=== PATIENT | male | born 1955 | race Caucasian/White ===

== ENCOUNTER 2020-09-10 11:23 | Emergency (ER) | payer SELFPAY ==
[2020-09-10 11:53] VITALS: BP 133/70; PULSE 82; RESP 20; TEMP 39.3; O2SAT 91; BMI 22.4
--- NOTE | 2020-09-10 12:52 | XR_ITS ---
WS: [id number] XR chest 1V portable [id number] REASON FOR EXAM: Cough FINDINGS: The heart and the mediastinum are within normal limits. Hazy groundglass density and nodular infiltrative changes are seen in the left lower lung and likely within the right lower lung as well. No pleural effusions identified. The bony thorax demonstrates old healed rib fractures and degenerative spondylosis in the lower thora cic spine. No other significant abnormality. XR/XR chest 1V portable [id number] IMPRESSION: Lung infiltrates which are suggestive of Covid pneumonitis.
--- NOTE | 2020-09-10 12:52 | ECG_ITS ---
[facility] Test Date: 2020-09-10 Pat Name: Deepak Valle Department: Room: Gender: Male Audit Specialist: : 1955 Requested By: Fei Aquino Order Number: [id number] Jorge MD: Shanon Kendrick M.D. Measurements Intervals [place] Rate: 80 P: 73 NV: 172 QRS: 5 QRSD: 100 T: 63 QT: 356 QTc: 411 Interpretive Statements SINUS RHYTHM WITH OCCASIONAL SUPRAVENTRICULAR PREMATURE COMPLEXES INCOMPLETE RIGHT BUNDLE BRANCH BLOCK [90+ ms QRS DURATION, TERMINAL R IN V1/V2, 40+ ms S IN I/aVL/V4/V5/V6] VOLTAGE CRITERIA FOR LVH [MEETS CRITERIA IN ONE OF: R(aVL), S(V1), R(V5), R(V5/V6)+S(V1)] No previous ECG available for comparison Electronically Signed On 09-10-2020 22:08:31 CDT by Shanon Kendrick M.D. [id number]
[2020-09-10 13:13] VITALS: BP 136/77; PULSE 79; RESP 28; TEMP 39.3
[2020-09-10 13:38] LABS: Basophils % 0.1 %; Hematocrit 34.9 % (42.0-52.0); Hemoglobin 12.3 g/dL (11.7-16.6); Lymphocytes # 0.7 10^3/uL (0.8-4.8); Lymphocytes % 10.3 %; Mean Corpuscular HGB Conc 35.2 g/dL (30.0-36.0); Mean Corpuscular Hemoglobin 31.1 pg (28.0-34.0); Mean Corpuscular Volume 88.4 fL (80-94); Mean Platelet Volume 11.2 fL (7.4-10.4); Monocytes # 0.4 10^3/uL (0.2-0.9); Neutrophils # 5.62 10^3/uL (1.8-7.7); Nucleated Red Blood Cells % 0 %; Platelet Count 255 10^3/cmm (130-400); Red Blood Count 3.95 10^6/uL (4.1-5.3); Red Cell Distribution Width 12.7 % (12.1-15.1); White Blood Count 6.8 10^3/uL (4.0-10.0)
--- NOTE | 2020-09-10 13:40 | ED_ITS ---
HPI - SOB/Dyspnea General: Chief Complaint: Shortness of Breath/Dyspnea Stated Complaint: Weakness, SOB, COVID + Time Seen by Provider: 09/10/20 12:53 History of Present Illness: HPI Narrative: This patient is a 65-year-old male who presents to the emergency department complaint of fatigue. Patient states that he has been having colds for the past 5 days and was diagnosed outpatient. Patient states he is still running fever just does not have any energy. O2 sat sat is 91 to 93% on room air. Will do medical evaluation treat as needed MD elicited complaint: cough Onset (ago): day(s) Context: recent illness Timing: constant Severity: mild Exacerbating factors: nothing Relieving factors: nothing Associated symptoms: Deny abdominal pain, chest pain, extremity pain, fever(s), lightheadedness, nausea, palpitations or vomiting Review of Systems General: Reports: 10 or more systems reviewed and unremarkable except in HPI and below Const: Reports: fatigue; Denies: fever(s), chills or body aches Eyes: Denies: change in vision or blurry vision ENMT: Denies: throat pain, hoarseness or mouth pain Card: Denies: chest pain, palpitations, irregular heart rhythm, edema, swelling of feet/ankles or lightheadedness Resp: Reports: dyspnea; Denies: productive cough, non-productive cough, wheezing or pain on inspiration GI: Denies: abdominal pain, nausea or vomiting : Denies: flank pain, dysuria, urinary frequency, urinary urgency or urinary hesitancy Musc: Denies: neck pain, back pain, extremity pain, extremity swelling, joint pain, joint swelling, joint redness, joint warmth or limited range of motion Skin/Breast: Denies: rash, pruritus, erythema or skin tenderness Neuro: Denies: headache(s), numbness in extremities or weakness in extremities Psych: Denies: anxiety or depression Physical Exam Const: COMMON NORMALS: no acute distress, average body habitus, patient oriented x3, no limitations, healthy appearing, alert and well nourished HENMT: COMMON NORMALS: normocephalic, atraumatic, hearing grossly normal bilaterally, external ears normal, EAC's normal, TM's normal bilaterally, Normal external nose present, Normal nasal mucous membranes and turbinates present, moist oral mucous membranes, oropharynx normal, dentition normal and gingiva normal HEAD & SCALP: normocephalic and atraumatic NOSE: Normal external nose present and Normal nasal mucous membranes and turbinates present EXTERNAL EAR: Yes external ears normal EXTERNAL AUDITORY CANAL: EAC's normal TYMPANIC MEMBRANE: TM's normal bilaterally Neck/C-Spine: COMMON NORMALS: full ROM, no lymphadenopathy, supple, no meningeal signs, no JVD, Thyroid normal and No carotid bruits THYROID: Thyroid normal Chest: COMMONS NORMALS: normal inspection of the chest, normal palpation of entire chest wall, normal inspection of the breasts and normal palpation of the breasts Breast/axilla inspection: Yes normal inspection of the breasts BREAST/AXILLA PALPATION: Yes normal palpation of the breasts Resp: COMMON NORMALS: normal respiratory effort, No retractions, No use of accessory muscles, clear to auscultation bilaterally and percussion normal AUSCULTATION: clear to auscultation bilaterally PERCUSSION: percussion normal Cardio: COMMON NORMALS: no JVD, regular rate, regular rhythm, S1 normal heart sound present, S2 normal heart sound present, No gallops present (Cardio), No clicks present (Cardio), No murmurs present (Cardio), No rub (Cardio) and Peripheral pulses 2+ throughout RATE: regular rate RHYTHM: regular rhythm HEART SOUNDS: S1 normal heart sound present and S2 normal heart sound present PERIPHERAL PULSES: Peripheral pulses 2+ throughout GI: COMMON NORMALS: Normal to inspection, nondistended, normoactive bowel sounds present, Soft to palpation, non-tender, No hepatosplenomegaly present, no masses and no bruits PALPATION: Yes Soft to palpation and Yes No hepatosplenomegaly present : COMMON NORMALS: Yes no CVA tenderness BLADDER/KIDNEY EXAM: Yes no CVA tenderness Back/Pelvis: COMMON NORMALS: no CVA tenderness, thoracic and lumbar spine normal to inspection, no thoracic nor lumbar tenderness, thoraco-lumbar ROM normal and straight leg raise negative bilaterally Extremity: COMMON NORMALS: normal to inspection, full ROM, capillary refill normal, no joint enlargement, no clubbing, cyanosis or edema, no calf tenderness and no pedal edema Neuro: COMMON NORMALS: patient oriented x3 SENSORIUM/ORIENTATION: Yes alert MENINGEAL SIGNS: Yes no meningeal signs Course Reevaluation(s): Reevaluation #1: Patient is stable states he feels much improved after IV fluid bolus. Patient does have Covid pneumonia pneumonitis. Patient be discharged home Viral syndrome Cool-mist humidifier as needed. Encourage p.o. fluids. Continue Tylenol Motrin as needed for fever for pain. Continue self quarantine. Follow-up with PCP in 7 to 10 days. Return to the emergency department symptoms fail to improve or worsen. Time: 15:47 Vital Signs: Vital signs: Vital Signs Temperature 102.8 F H 09/10/20 13:13 Pulse Rate 81 09/10/20 14:49 Respiratory Rate 41 H 09/10/20 14:49 Blood Pressure 135/74 09/10/20 14:49 Pulse Oximetry 95 09/10/20 14:49 MDM - SOB/Dyspnea MDM Narrative: Medical decision making narrative: Cool-mist humidifier as needed. Encourage p.o. fluids. Continue Tylenol Motrin as needed for fever for pain. Continue self quarantine. Follow-up with PCP in 7 to 10 days. Return to the emergency department symptoms fail to improve or worsen. Lab Data: Labs: Lab Results 09/10/20 09/10/20 09/10/20 Range/Units 13:25 13:25 13:25 WBC 6.8 (4.0-10.0) 10^3/ uL RBC 3.95 L (4.1-5.3) 10^6/u L Hgb 12.3 (11.7-16.6) g/dL Hct 34.9 L (42.0-52.0) % MCV 88.4 (80-94) fL MCH 31.1 (28.0-34.0) pg MCHC 35.2 (30.0-36.0) g/dL RDW 12.7 (12.1-15.1) % Plt Count 255 (130-400) 10^3/c mm MPV 11.2 H (7.4-10.4) fL Neut % (Auto) 83.0 % Lymph % (Auto) 10.3 % [place] % (Auto) 6.0 % Eos % (Auto) 0.0 % Baso % (Auto) 0.1 % Neut # (Auto) 5.62 (1.8-7.7) 10^3/u L Lymph # (Auto) 0.7 L (0.8-4.8) 10^3/u L [place] # (Auto) 0.4 (0.2-0.9) 10^3/u L Eos # (Auto) 0.0 (0.0-0.8) 10^3/u L Baso # (Auto) 0.0 (0.0-0.1) 10^3/u L Nucleated RBC % (a uto) 0 % Nucleated RBCs # 0.0 /100WBC PT 14.10 (12.1-14.9) SECO NDS INR 1.06 (0.8-1.2) APTT 40.0 H (23.9-36.7) SECO NDS D-Dimer 1.24 H (0-0.59) ug/mIFE U Specimen Type Sample Site ABG pH (7.35-7.45) ABG pCO2 (35-45) mmHg ABG pO2 (80.0-100.0) mmH g ABG HCO3 (22-26) mmol/L ABG O2 Saturation ABG Base Excess (-2.0-2.0) mmol/ L Gaurav Test A-a O2 Gradient (5-10) mmHg Hematocrit (42-52) % Hgb O2 Saturation (95-100) % Carboxyhemoglobin (0.4-20.1) %THgb Methemoglobin (0.4-1.5) % Total Hemoglobin (14-18) g/dL Ionized Calcium (1.1-1.4) mmol/L O2 Delivery Device Otolaryngology Physician ID Sodium 134 L (136-145) mmol/L Potassium 3.8 (3.5-5.1) mmol/L Chloride 93 L (98-107) mmol/L Carbon Dioxide 26 (22-29) mmol/L Anion Gap 18.8 (5-19) BUN 46 H (8-23) mg/dL Creatinine 1.4 H (0.7-1.2) mg/dL GFR Calculation 51.2 L (90-130) mL/min Glucose 106 (65-115) mg/dL Calculated Osmolal ity 290 (285-295) mOsm/k g Calcium 8.1 L (8.5-10.5) mg/dL Total Bilirubin 0.8 (0.15-1.2) mg/dL AST 76 H (0-40) U/L ALT 44 H (0-41) U/L Alkaline Phosphata se 88 (40-130) IU/L NT-Pro-B Natriuret Pep 113 (0-125) pg/mL Total Protein 6.2 L (6.6-8.7) g/dL Albumin 3.7 (3.5-5.2) g/dL Globulin 2.5 (1.3-4.6) g/dL Urine Color (Yellow) Urine Appearance (CLEAR) Urine pH (5-7) Ur Specific Gravit y (1.005-1.030) Urine Protein (Negative) Urine Glucose (UA) (Normal) Urine Ketones (Negative) Urine Blood (Negative) Urine Nitrate (Negative) Urine Bilirubin (Negative) Urine Urobilinogen (Negative) mg/dL Ur Leukocyte Yamila ase (Negative) Urine RBC (0-2) /hpf Urine WBC (0-5) /hpf Ur Squamous Epith Cells (0-5) /hpf Amorphous Sediment /hpf Urine Bacteria (NONE) /hpf Coarse Granular Ca sts /lpf Group A Strep Rapi d (Negative) 09/10/20 09/10/20 09/10/20 Range/Units 13:25 14:00 14:10 WBC (4.0-10.0) 10^3/ uL RBC (4.1-5.3) 10^6/u L Hgb (11.7-16.6) g/dL Hct (42.0-52.0) % MCV (80-94) fL MCH (28.0-34.0) pg MCHC (30.0-36.0) g/dL RDW (12.1-15.1) % Plt Count (130-400) 10^3/c mm MPV (7.4-10.4) fL Neut % (Auto) % Lymph % (Auto) % [place] % (Auto) % Eos % (Auto) % Baso % (Auto) % Neut # (Auto) (1.8-7.7) 10^3/u L Lymph # (Auto) (0.8-4.8) 10^3/u L [place] # (Auto) (0.2-0.9) 10^3/u L Eos # (Auto) (0.0-0.8) 10^3/u L Baso # (Auto) (0.0-0.1) 10^3/u L Nucleated RBC % (a uto) % Nucleated RBCs # /100WBC PT (12.1-14.9) SECO NDS INR (0.8-1.2) APTT (23.9-36.7) SECO NDS D-Dimer (0-0.59) ug/mIFE U Specimen Type Arterial Sample Site Brachial, left ABG pH 7.51 H (7.35-7.45) ABG pCO2 31.9 L (35-45) mmHg ABG pO2 61.8 L (80.0-100.0) mmH g ABG HCO3 25.2 (22-26) mmol/L ABG O2 Saturation 91.8 ABG Base Excess 2.7 H (-2.0-2.0) mmol/ L Gaurav Test N/a A-a O2 Gradient 6.2 (5-10) mmHg Hematocrit 41.3 L (42-52) % Hgb O2 Saturation 90.2 L (95-100) % Carboxyhemoglobin 0.8 (0.4-20.1) %THgb Methemoglobin 0.9 (0.4-1.5) % Total Hemoglobin 13.5 L (14-18) g/dL Ionized Calcium 1.1 (1.1-1.4) mmol/L O2 Delivery Device Room air Otolaryngology Physician ID Gd Sodium 136.0 (136-145) mmol/L Potassium 3.2 L (3.5-5.1) mmol/L Chloride (98-107) mmol/L Carbon Dioxide (22-29) mmol/L Anion Gap (5-19) BUN (8-23) mg/dL Creatinine (0.7-1.2) mg/dL GFR Calculation (90-130) mL/min Glucose 105.0 (65-115) mg/dL Calculated Osmolal ity (285-295) mOsm/k g Calcium (8.5-10.5) mg/dL Total Bilirubin (0.15-1.2) mg/dL AST (0-40) U/L ALT (0-41) U/L Alkaline Phosphata se (40-130) IU/L NT-Pro-B Natriuret Pep (0-125) pg/mL Total Protein (6.6-8.7) g/dL Albumin (3.5-5.2) g/dL Globulin (1.3-4.6) g/dL Urine Color Yellow (Yellow) Urine Appearance Hazy A (CLEAR) Urine pH 5 (5-7) Ur Specific Gravit y 1.010 (1.005-1.030) Urine Protein 1+ H (Negative) Urine Glucose (UA) Norm (Normal) Urine Ketones Negative (Negative) Urine Blood 2+ H (Negative) Urine Nitrate Negative (Negative) Urine Bilirubin Neg (Negative) Urine Urobilinogen Norm (Negative) mg/dL Ur Leukocyte Yamila ase Negative (Negative) Urine RBC 0-4 H (0-2) /hpf Urine WBC 0-4 H (0-5) /hpf Ur Squamous Epith Cells None (0-5) /hpf Amorphous Sediment 2+ /hpf Urine Bacteria 1+ H (NONE) /hpf Coarse Granular Ca sts 15-25 H /lpf Group A Strep Rapi d Negative (Negative) Imaging Data^: CXR: Attestation: I personally reviewed and interpreted this imaging study as follows: Radiologist's impression: IMPRESSION: Lung infiltrates which are suggestive of Covid pneumonitis. CT Chest: Attestation: I personally reviewed and interpreted this imaging study as follows: Radiologist's impression: IMPRESSION: Extensive infiltrative changes in both lungs involving a significant amount of the lung tissue of the left lung compatible with Covid pneumonitis. EKG Data^: EKG 1: Attestation: I personally reviewed and interpreted this EKG as follows: EKG Interpretation Date: 09/10/20 EKG interpretation time: 13:44 Prior EKG tracings: not available for review Interpretation: Sinus rhythm with occasional PVC. Heart rate 80 incomplete right bundle branch block. Nonspecific EKG changes Discharge Plan Discharge Patient Disposition: Home Clinical Impression: COVID-19, Systemic viral illness Condition: Stable Prescriptions: New methylprednisolone [Medrol (Mickey)] 4 mg tablets,dose pack See Rx Instructions .ROUTE .COMPLEX Qty: 21 RF: 0 albuterol sulfate 90 mcg/actuation HFA aerosol inhaler 2 puff inhalation Q4H PRN (Reason: shortness of breath or wheezing) Qty: 8.5 RF: 0 No Action Tylenol Extra Strength 500 mg Tablet 500 mg PO PRN RF: 0 Advil 200 mg Tablet 400 mg PO PRN RF: 0 Vitamin C 1 tab PO DAILY RF: 0 Discharge Orders: Discharge ED (Routine); Ordered 09/10/20 Ordered By: Fei Aquino Referrals: MIGUEL STORM, [Primary Care Provider] - Discharge Diet: Advance as tolerated Discharge Activity: Resume usual activity and Increase activity as tolerated Patient Instructions: Opioid Safety Activity Restrictions/Additional Instructions: Cool-mist humidifier as needed. Encourage p.o. fluids. Continue Tylenol Motrin as needed for fever for pain. Continue self quarantine. Follow-up with PCP in 7 to 10 days. Return to the emergency department symptoms fail to improve or worsen. Coding Level of Care Code ED Brine Tank Tender for Chg Fwd Exam Comprehensive
[2020-09-10 13:46] LABS: INR 1.06 (0.8-1.2)
[2020-09-10 13:49] LABS: D Dimer 1.24 ug/mIFEU (0-0.59)
[2020-09-10 13:51] LABS: Rapid Strep A Test Negative (Negative)
--- NOTE | 2020-09-10 13:56 | CT_ITS ---
WS: [id number] CT angio chest PE protcl [id number] REASON FOR EXAM: SOB with Elevated DDimer TECHNIQUE: Coronal and sagittal 2-D and MIP reformations. IV CONTRAST ADMINISTERED: 69 mL of Omnipaque 350. TOTAL EXAM DLP: 579.[address] scans at [facility] use at least one of these dose optimization techniques: automat ed exposure control; mA and/or kV adjustment per patient size (includes targeted exams where dose is matched to clinical indication); or iterative reconstruction. FINDINGS: No pulmonary emboli. Normal thoracic aorta. Minor bilateral hilar adenopathy which appears somewhat more prominent than on previous CT scan of e chest 12/14/2009. Large areas of groundglass density with small ill-defined areas of consolidative density and multiple linear densities in the parenchyma of both the left upper and left lower lobes, the right lower lobe , and the azygos esophageal recess. This is superimposed on a lung with findings of central lobar emp hysema. No pleural effusion. Degenerative change in the thoracic spine bony thorax otherwise intact. CT/CT angio chest PE protcl [id number] IMPRESSION: Extensive infiltrative changes in both lungs involving a significant amount of the lung tissue of the left lung compatible with Covid pneumonitis.
[2020-09-10 14:01] LABS: Alanine Aminotransferase 44 U/L (0-41); Albumin Level 3.7 g/dL (3.5-5.2); Alkaline Phosphatase 88 IU/L (40-130); Anion Gap 18.8 (5-19); Aspartate Amino Transferase 76 U/L (0-40); Blood Urea Nitrogen 46 mg/dL (8-23); Calcium 8.1 mg/dL (8.5-10.5); Carbon Dioxide 26 mmol/L (22-29); Chloride 93 mmol/L (98-107); Globulin 2.5 g/dL (1.3-4.6); Glomerular Filtration Rate 51.2 mL/min (90-130); Glucose 106 mg/dL (65-115); NT Pro B Type Natriuretic Pept 113 pg/mL (0-125); Osmolality Calculated 290 mOsm/kg (285-295); Potassium 3.8 mmol/L (3.5-5.1); Sodium 134 mmol/L (136-145); Total Bilirubin 0.8 mg/dL (0.15-1.2); Total Protein 6.2 g/dL (6.6-8.7)
[2020-09-10] MEDS: sodium chloride 0.9% 1,000 ML 999 ML IV (14:10)
[2020-09-10] MEDS: acetaminophen 325 mg Tablet 650 MG PO (14:10)
[2020-09-10] MEDS: dexamethasone 10 mg/mL INJ IM (14:10)
[2020-09-10 14:24] LABS: ABG PCO2 31.9 mmHg (35-45); ABG PH Result 7.51 (7.35-7.45); Alveolar-Arterial Oxygen Gradi 6.2 mmHg (5-10); Arterial Blood Gas Hematocrit 41.3 % (42-52); Base Excess ABG 2.7 mmol/L (-2.0-2.0); Blood Gas Operator Identificat GD; Blood Gas Sample Site Brachial, left; Blood Gas Sample Type Arterial; Carboxyhemoglobin 0.8 %THgb (0.4-20.1); HCO3 ABG 25.2 mmol/L (22-26); HGB O2 Sat 90.2 % (95-100); Ionized Calcium Level - ABG 1.1 mmol/L (1.1-1.4); Methemoglobin 0.9 % (0.4-1.5); Oxygen Device ROOM AIR; Oxygen Saturation ABG 91.8; PO2 ABG 61.8 mmHg (80.0-100.0); Potassium Level - ABG 3.2 mmol/L (3.5-5.0); Total Hemoglobin 13.5 g/dL (14-18)
[2020-09-10 14:29] LABS: Add Urine Microscopic? YES; Bilirubin Urine Neg (Negative); Blood Urine 2+ (Negative); Glucose Urine UA Norm (Normal); Ketones Urine Negative (Negative); Leukocyte Esterase Urine Negative (Negative); Nitrate Urine Negative (Negative); Protein Urine 1+ (Negative); Urine Appearance Hazy (CLEAR); Urine Color Yellow (Yellow); Urobilinogen Urine Norm (Negative); pH Urine 5 (5-7)
[2020-09-10 14:30] LABS: Amorphous Sediment Urine 2+ /hpf; Bacteria Urine 1+ /hpf; RBC Urine 0-4 /hpf (0-2); WBC Urine 0-4 /hpf (0-5)
[2020-09-10 14:31] LABS: Add Urine Culture? No; Coarse Granular Casts Urine 15-25 /lpf
[2020-09-10] MEDS: iodixanol 320 mg/mL 100mL Btl IV (14:35)
[2020-09-10 14:49] VITALS: BP 135/74; PULSE 81; RESP 41; O2SAT 95
[2020-09-10 16:16] VITALS: BP 135/79; PULSE 74; RESP 33; O2SAT 94
== END 2020-09-10 14:00 | disposition home or self-care (01) ==
PROVIDERS: Emergency Provider Emergency Medicine
DX: U07.1 COVID-19 (principal); J12.82 Pneumonia due to coronavirus disease 2019
CPT/HCPCS: 36600; 71045; 71275; 80051; 80053; 81001; 82330; 82805; 83880; 85025; 85378; 85610; 85730; 87081; 87880; 93005; 96360; 96372; 99284; J1100; J7030; Q9967

== ENCOUNTER 2020-09-15 09:04 | Emergency (ER) | payer SELFPAY ==
[2020-09-15 09:12] VITALS: BP 124/72; PULSE 71; RESP 15; TEMP 37; O2SAT 98; BMI 21.7
--- NOTE | 2020-09-15 09:16 | W.ED.COVID ---
HPI - COVID General: Chief Complaint: COVID symptoms Stated Complaint: COVID +; SOB Time Seen by Provider: 09/15/20 09:09 Triage information: Has fever, cough or shortness of breath. Exposure to COVID + person last 14 days History of Present Illness: HPI Narrative: 65-year-old male comes in with increasing shortness of breath and fever myalgias initially started with diarrhea as well as now requiring oxygen at 2 to 3 L/min. MD complaint: known COVID positive Prior covid testing: yes, results known Prior testing date: 09/06/20 COVID 19 common symptoms: positive fever(s), chills, cough, non-productive cough, dyspnea, fatigue, body aches, loss of sense of smell and/or taste, throat pain and nasal congestion COVID 19 other sytmptoms: positive requiring oxygen Onset (ago): day(s) Severity: severe COVID Results: No Data to Display Review of Systems Const: Reports: fever(s), chills, body aches and fatigue ENMT: Reports: throat pain and nasal congestion Resp: Reports: dyspnea and non-productive cough Physical Exam Const: COMMON NORMALS: no acute distress GENERAL APPEARANCE: cooperative and comfortable ORIENTATION/CONSCIOUSNESS: Yes awake, Yes oriented to person, Yes oriented to place and Yes oriented to time HENMT: COMMON NORMALS: normocephalic, atraumatic and hearing grossly normal bilaterally HEAD & SCALP: normocephalic and atraumatic Neck/C-Spine: COMMON NORMALS: no JVD Resp: AUSCULTATION: crackles and wheezes Cardio: COMMON NORMALS: no JVD, regular rate, regular rhythm and No murmurs present (Cardio) RATE: regular rate RHYTHM: regular rhythm GI: COMMON NORMALS: Soft to palpation and No hepatosplenomegaly present AUSCULTATION: Yes normoactive bowel sounds PALPATION: Yes Soft to palpation, No Tenderness to palpation present (GI), No Guarding due to palpation present (GI) and Yes No hepatosplenomegaly present Extremity: COMMON NORMALS: normal to inspection, capillary refill normal, no clubbing, cyanosis or edema, no calf tenderness and no pedal edema Neuro: SENSORIUM/ORIENTATION: Yes oriented to person, Yes oriented to place and Yes oriented to time Skin: COMMON NORMALS: no rashes or lesions noted GENERAL SKIN EXAM: no rashes or lesions noted Course Vital Signs: Vital signs: Vital Signs Temperature 98.6 F 09/15/20 09:12 Pulse Rate 76 09/15/20 12:18 Respiratory Rate 18 09/15/20 12:18 Blood Pressure 147/78 09/15/20 12:18 Pulse Oximetry 95 09/15/20 10:36 MDM - COVID MDM Narrative: Medical decision making narrative: Reviewed evaluation patient. Reviewed imaging and labs with the patient. Organ to discharge him home on dexamethasone and oxygen. DC the methylprednisolone. Return if is worsening problems reviewed home oxygen monitoring saturation medications. Lab Data: Labs: Lab Results 09/15/20 09/15/20 09/15/20 Range/Units 10:25 10:25 10:25 WBC 10.2 H (4.0-10.0) 10^3/ uL RBC 3.50 L (4.1-5.3) 10^6/u L Hgb 11.0 L (11.7-16.6) g/dL Hct 31.5 L (42.0-52.0) % MCV 90.0 (80-94) fL MCH 31.4 (28.0-34.0) pg MCHC 34.9 (30.0-36.0) g/dL RDW 12.7 (12.1-15.1) % Plt Count 495 H (130-400) 10^3/c mm MPV 10.9 H (7.4-10.4) fL Neut % (Auto) 86.4 % Lymph % (Auto) 6.5 % [place] % (Auto) 5.2 % Eos % (Auto) 0.8 % Baso % (Auto) 0.3 % Neut # (Auto) 8.81 H (1.8-7.7) 10^3/u L Lymph # (Auto) 0.7 L (0.8-4.8) 10^3/u L [place] # (Auto) 0.5 (0.2-0.9) 10^3/u L Eos # (Auto) 0.1 (0.0-0.8) 10^3/u L Baso # (Auto) 0.0 (0.0-0.1) 10^3/u L Nucleated RBC % (a uto) 0 % Nucleated RBCs # 0.0 /100WBC D-Dimer 3.99 H (0-0.59) ug/mIFE U Sodium 140 (136-145) mmol/L Potassium 3.3 L (3.5-5.1) mmol/L Chloride 100 (98-107) mmol/L Carbon Dioxide 28 (22-29) mmol/L Anion Gap 15.3 (5-19) BUN 27 H (8-23) mg/dL Creatinine 0.8 (0.7-1.2) mg/dL GFR Calculation 97.6 (90-130) mL/min Glucose 110 (65-115) mg/dL Calculated Osmolal ity 296 H (285-295) mOsm/k g Lactic Acid (0.5-2.2) mmol/L Calcium 8.6 (8.5-10.5) mg/dL Total Bilirubin 0.7 (0.15-1.2) mg/dL AST 38 (0-40) U/L ALT 41 (0-41) U/L Alkaline Phosphata se 124 (40-130) IU/L C-Reactive Protein 241.8 H (0.0-4.9) mg/L Total Protein 6.7 (6.6-8.7) g/dL Albumin 3.0 L (3.5-5.2) g/dL Globulin 3.7 (1.3-4.6) g/dL 09/15/20 Range/Units 10:25 WBC (4.0-10.0) 10^3/ uL RBC (4.1-5.3) 10^6/u L Hgb (11.7-16.6) g/dL Hct (42.0-52.0) % MCV (80-94) fL MCH (28.0-34.0) pg MCHC (30.0-36.0) g/dL RDW (12.1-15.1) % Plt Count (130-400) 10^3/c mm MPV (7.4-10.4) fL Neut % (Auto) % Lymph % (Auto) % [place] % (Auto) % Eos % (Auto) % Baso % (Auto) % Neut # (Auto) (1.8-7.7) 10^3/u L Lymph # (Auto) (0.8-4.8) 10^3/u L [place] # (Auto) (0.2-0.9) 10^3/u L Eos # (Auto) (0.0-0.8) 10^3/u L Baso # (Auto) (0.0-0.1) 10^3/u L Nucleated RBC % (a uto) % Nucleated RBCs # /100WBC D-Dimer (0-0.59) ug/mIFE U Sodium (136-145) mmol/L Potassium (3.5-5.1) mmol/L Chloride (98-107) mmol/L Carbon Dioxide (22-29) mmol/L Anion Gap (5-19) BUN (8-23) mg/dL Creatinine (0.7-1.2) mg/dL GFR Calculation (90-130) mL/min Glucose (65-115) mg/dL Calculated Osmolal ity (285-295) mOsm/k g Lactic Acid 1.4 (0.5-2.2) mmol/L Calcium (8.5-10.5) mg/dL Total Bilirubin (0.15-1.2) mg/dL AST (0-40) U/L ALT (0-41) U/L Alkaline Phosphata se (40-130) IU/L C-Reactive Protein (0.0-4.9) mg/L Total Protein (6.6-8.7) g/dL Albumin (3.5-5.2) g/dL Globulin (1.3-4.6) g/dL COVID Results: No Data to Display Discharge Plan Discharge Patient Disposition: Home Clinical Impression: COVID-19 Condition: Stable Prescriptions: New dexamethasone 6 mg tablet 6 mg PO DAILY Qty: 7 RF: 0 Discontinued methylprednisolone [Medrol (Mickey)] 4 mg tablets,dose pack See Rx Instructions .ROUTE .COMPLEX Qty: 21 RF: 0 No Action Tylenol Extra Strength 500 mg Tablet 500 mg PO PRN RF: 0 Advil 200 mg Tablet 400 mg PO PRN RF: 0 Vitamin C 1 tab PO DAILY RF: 0 albuterol sulfate 90 mcg/actuation HFA aerosol inhaler 2 puff inhalation Q4H PRN (Reason: shortness of breath or wheezing) Qty: 8.5 RF: 0 Discharge Orders: Discharge ED (Routine); Ordered 09/15/20 Ordered By: Janes Charles Other Ambulatory Orders: DME: Oxygen (Order) Location: None Selected Ordered By: Janes Charles Referrals: [facility], [Primary Care Provider] - Discharge Diet: Usual diet Discharge Activity: Resume usual activity Patient Instructions: Opioid Safety Activity Restrictions/Additional Instructions: After home oxygen saturations at rest. Your oxygen should stay above 90% while at rest. If it was worse than that consistently return to the emergency room. We will decrease some when you are active. Coding Level of Care Code ED Hazmat Cdl A Driver for John Baker
--- NOTE | 2020-09-15 09:29 | XRR_ITS ---
PROCEDURE INFORMATION: Exam: XR Chest Exam date and time: 09/15/2020 9:29 AM Age: 65 years old Clinical indication: Cough and dyspnea; Additional info: Dyspnea/cough TECHNIQUE: Imaging protocol: XR of the chest. Views: 1 view. COMPARISON: CR XR chest 1V portable [id number] 09/10/2020 1:28 PM FINDINGS: Lungs: There is consolidation of the bilateral lower lung stein, left greater than right consistent with pneumonia. Pleural spaces: Unremarkable. No pleural effusion. No pneumothorax. Heart/Mediastinum: Unremarkable. No cardiomegaly. Bones/joints: Unremarkable. XR/XR chest 1V portable [id number] IMPRESSION: There is consolidation of the bilateral lower lung stein, left greater than right consistent with pneumonia.
[2020-09-15 09:36] VITALS: RESP 15; O2SAT 97
--- NOTE | 2020-09-15 09:55 | ECG_ITS ---
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 Measurements Intervals [place] Rate: 68 P: 57 [place]: 181 QRS: 25 QRSD: 91 T: 46 QT: 395 QTc: 422 Interpretive Statements SINUS RHYTHM VOLTAGE CRITERIA FOR LVH [MEETS CRITERIA IN ONE OF: R(aVL), S(V1), R(V5), R(V5/V6)+S(V1)] Compared to ECG 09/10/2020 13:44:59 Incomplete right bundle-branch block no longer present Electronically Signed On 09-20-2020 12:35:03 CDT by Shanon Kendrick M.D. [id number]
[2020-09-15 10:26] VITALS: O2SAT 86; O2SAT 94
[2020-09-15 10:36] VITALS: BP 123/64; PULSE 73; RESP 18; O2SAT 95
[2020-09-15 11:25] LABS: Basophils % 0.3 %; Eosinophils # 0.1 10^3/uL (0.0-0.8); Eosinophils % 0.8 %; Hematocrit 31.5 % (42.0-52.0); Lymphocytes # 0.7 10^3/uL (0.8-4.8); Lymphocytes % 6.5 %; Mean Corpuscular HGB Conc 34.9 g/dL (30.0-36.0); Mean Corpuscular Hemoglobin 31.4 pg (28.0-34.0); Mean Platelet Volume 10.9 fL (7.4-10.4); Monocytes # 0.5 10^3/uL (0.2-0.9); Monocytes % 5.2 %; Neutrophils # 8.81 10^3/uL (1.8-7.7); Neutrophils % 86.4 %; Nucleated Red Blood Cells % 0 %; Platelet Count 495 10^3/cmm (130-400); Red Cell Distribution Width 12.7 % (12.1-15.1); White Blood Count 10.2 10^3/uL (4.0-10.0)
[2020-09-15 11:41] LABS: Alanine Aminotransferase 41 U/L (0-41); Alkaline Phosphatase 124 IU/L (40-130); Anion Gap 15.3 (5-19); Aspartate Amino Transferase 38 U/L (0-40); Blood Urea Nitrogen 27 mg/dL (8-23); C Reactive Protein 241.8 mg/L (0.0-4.9); Calcium 8.6 mg/dL (8.5-10.5); Carbon Dioxide 28 mmol/L (22-29); Chloride 100 mmol/L (98-107); Globulin 3.7 g/dL (1.3-4.6); Glomerular Filtration Rate 97.6 mL/min (90-130); Glucose 110 mg/dL (65-115); Osmolality Calculated 296 mOsm/kg (285-295); Potassium 3.3 mmol/L (3.5-5.1); Sodium 140 mmol/L (136-145); Total Bilirubin 0.7 mg/dL (0.15-1.2); Total Protein 6.7 g/dL (6.6-8.7)
[2020-09-15 12:18] VITALS: BP 147/78; PULSE 76; RESP 18
[2020-09-15 12:41] LABS: D Dimer 3.99 ug/mIFEU (0-0.59)
[2020-09-15 14:15] LABS: Lactic Sepsis W/Reflex 1.4 mmol/L (0.5-2.2)
== END 2020-09-15 12:57 | disposition home or self-care (01) ==
PROVIDERS: Emergency Provider Family Medicine
DX: U07.1 COVID-19 (principal)
CPT/HCPCS: 71045; 80053; 83605; 85025; 85378; 86140; 93005; 99283